=== PATIENT | male | born 1960 | race Caucasian/White ===

== ENCOUNTER 2024-06-28 18:27 | Inpatient (IN) | payer BC, SELFPAY ==
[2024-06-28 18:40] VITALS: BP 147/79
--- NOTE | 2024-06-28 19:24 | PTCARENOTE ---
patient arrived from [facility], placed on monitor, SB, VSS. patient has right R band on with 3cc of air remaining, o2 sat 96%. patient has right ant. INT @ NSS. INT is in left hand. patient is oriented to room and surroundings. TT Dr. Nagel of patients
arrival to unit.report given to oncoming RN.
[2024-06-28 19:26] VITALS: BP 144/84
[2024-06-28 19:30] VITALS: BP 140/82
--- NOTE | 2024-06-28 19:41 | HPS.HSE ---
Family Physician
-
Family Physician: Keegan Khan
Chief Complaint
-
chest pain
History of Present Illness
64-year-old male past medical history of left bundle branch block, hypercholesteremia, prediabetes, glaucoma, obesity, lumbar spine disease presenting as a transfer from [facility] for PCI.
He presented to [facility] 2 days ago for chest pain radiating into his jaw and left arm. Initially thought he was having acid reflux pain got worse which prompted him to go to the hospital.
At [facility] he was started on aspirin, heparin drip and lisinopril. Crestor dosage was increased. He underwent cardiac catheterization today which showed obstruction of the LAD following PCI. He was transferred here for subsequent LAD
PCI.
He denies smoking. Denies alcohol.
He has family history of cardiac arrest in his brother and father. His brother had diabetes.
Medical History
Past Medical History
Past Medical History: Reports Other (left bundle branch block, hypercholesteremia, prediabetes, glaucoma, obesity, lumbar spine disease)
Past Surgical History: Reports Other (Hernia repair, colonoscopy, wisdom teeth extraction, cholecystectomy, history of left hip replacement, right hip replacement,)
Social History
Tobacco: Non-smoker
Alcohol: None
Drug: None
Family History
Family History: Other (He has family history of cardiac arrest in his brother and father. His brother had diabetes.)
Allergies / Home Medications
Allergies reflects when Allergies were last updated in [employer].
Home Medications with original date entered in [employer]
Allergy/Medication List:
Not available.
Review of Systems
-
History Source: Patient
A 12 point ROS was completed and negative except as noted: Yes
Constitutional: Reports No Symptoms
EENT: Reports No Symptoms
Respiratory: Reports No Symptoms
Cardiac: Reports No Symptoms
Abdomen/GI: Reports No Symptoms
: Reports No Symptoms
Musculoskeletal: Reports No Symptoms
Skin: Reports No Symptoms
Neurological: Reports No Symptoms
Endocrine: Reports No Symptoms
Hematologic/Lymphatic: Reports No Symptoms
Psych: Reports No Symptoms
Physical Exam
Vital Signs
Vital Signs
Temp Resp Pulse Ox
98.2 F 18 95
06/28/24 18:41 06/28/24 18:41 06/28/24 18:41
Physical Exam
General: Well Developed, Well Nourished and No Apparent Distress
HEENT: NormoCephalic, Moist mucous membranes and Atraumatic
Respiratory: Clear
Cardiac: S1/S2 and Regular Rhythm; No Murmur or Rub
GI: Soft, Non Tender, Non Distended and Normal Bowel Sounds; No Organomegaly
Rectal: Deferred by Provider
Musculoskeletal: No Clubbing, No Cyanosis and No Edema
Skin: No Rash
Neuro: Nonfocal/grossly intact
Data Reviewed
-
Lab Data: Labs Reviewed by me
Old Records: Reviewed
Impression/Plan
-
IMPRESSION:
PLAN:
# NSTEMI
-Echocardiogram at [facility] showed EF of 35 to 40%, abnormal LV diastolic function
-Continue aspirin
-Continue heparin drip
-N.p.o. postmidnight for catheterization potentially tomorrow
-Cardiology consulted
-Continue lisinopril
-Continue Crestor
History of left bundle branch block
Hypercholesterolemia
-Continue statin
Prediabetes
Glaucoma
-Continue eyedrops
Obesity
Lumbar spine disease
Full code
DVT prophylaxis�heparin
N.p.o. past midnight
[2024-06-28 19:45] VITALS: BMI 36.7
[2024-06-28 20:00] VITALS: BP 139/80
[2024-06-28 20:45] LABS: Hematocrit 42.8 % (39.0-52.0); Hemoglobin 14.5 g/dL (13.0-18.0); Mean Corp Hgb Conc. 33.9 g/dL (33.0-37.0); Mean Corpuscular Hgb 29.5 pg (27.0-31.0); Mean Corpuscular Volume 87.2 fL (80.0-94.0); Platelet Count 204 10^3/uL (130-400); Red Blood Cell Count 4.91 10^6/uL (4.70-6.10); Red Cell Dist. Width 13.3 % (11.5-14.5); White Blood Cell Count 7.4 10^3/uL (4.8-10.8)
[2024-06-28] MEDS: HEPARIN 25000 UNITS/250 ML IV (20:50)
[2024-06-28 20:55] LABS: APTT 25.2 Sec (23.4-35.0)
[2024-06-28] MEDS: ALPHAGAN P 0.1% EYE DROPS OPHTH (21:42)
[2024-06-28 22:27] LABS: Glucose - Point of Care 77 mg/dl (70-99)
[2024-06-28 22:28] VITALS: BP 153/93
--- NOTE | 2024-06-28 23:40 | PTCARENOTE ---
Rec'd pt at change of shift. Pt transferred from [facility] and admission complete, then pt oriented to unit. Pt AAO*3, VSS, and in NSR on TELE monitor. Heparin gtt started as ordered. Pt denies any pain or discomfort. Pt with right radial cath site
dressing CDI. Pt agreed to RUE restriction. Pt resting with call tello in reach. Plan of care ongoing. See flowchart, worklist, and MAR for full assessment and pt care.
[2024-06-29] VITALS (16 sets, daily range): BP systolic 105–154; BP diastolic 74–94; BMI 36.4
[2024-06-29 04:09] LABS: % Basophils 0.4 % (0-2); % Eosinophils 4.8 % (0-6); % Immature Granulocytes 0.1 % (0-0.5); % Monocytes 10.3 % (1.7-9.3); % Neutrophils 58.4 % (42.2-75.2); Absolute Eosinophils 0.3 10^3/uL (0-0.7); Absolute Lymphocytes 1.7 10^3/uL (1.2-3.4); Absolute Monocytes 0.7 10^3/uL (0.1-0.6); Absolute Neutrophils 3.9 10^3/uL (1.4-6.5); Hematocrit 44.8 % (39.0-52.0); Hemoglobin 14.9 g/dL (13.0-18.0); Mean Corp Hgb Conc. 33.3 g/dL (33.0-37.0); Mean Corpuscular Hgb 29.1 pg (27.0-31.0); Mean Corpuscular Volume 87.5 fL (80.0-94.0); Mean Platelet Volume 10.4 fL (7.4-10.4); Nucleated Red Blood Cells % 0 % (-); Platelet Count 211 10^3/uL (130-400); Red Blood Cell Count 5.12 10^6/uL (4.70-6.10); Red Cell Dist. Width 13.4 % (11.5-14.5); White Blood Cell Count 6.7 10^3/uL (4.8-10.8)
[2024-06-29 04:35] LABS: ALT (SGPT) 69 U/L (0-50); AST (SGOT) 51 U/L (17-59); Alkaline Phosphatase 47 U/L (38-126); Blood Urea Nitrogen 17 mg/dl (9-20); Calcium 9.1 mg/dl (8.4-10.2); Carbon Dioxide 23 mmol/L (22-30); Chloride 106 mmol/L (98-107); Estimated Creatinine Clearance 116 ml/min; Glucose 95 mg/dl (70-99); Potassium 4.2 mmol/L (3.5-5.1); Sodium 139 mmol/L (135-145); Total Bilirubin 1.8 mg/dl (0.2-1.3); Total Protein 6.2 g/dl (6.3-8.2); eGFR > 60.00
[2024-06-29 04:57] LABS: APTT 61.4 Sec (23.4-35.0)
--- NOTE | 2024-06-29 06:42 | W.PN.HOSP.TC ---
Today's Communication/Plan
-
Review [facility] records, need to be scanned in the system
Assessment / Plan
Assessment / Plan
Physical Exam
General: Well Developed, Well Nourished and No Apparent Distress
HEENT: NormoCephalic, Moist mucous membranes and Atraumatic
Respiratory: Clear
Cardiac: S1/S2 and Regular Rhythm; No Murmur or Rub
GI: Soft, Non Tender, Non Distended and Normal Bowel Sounds; No Organomegaly
Rectal: Deferred by Provider
Musculoskeletal: No Clubbing, No Cyanosis and No Edema
Skin: No Rash
Neuro: Nonfocal/grossly intact
# NSTEMI
No chest pain
No sob
-Echocardiogram at [place] showed EF of 35 to 40%, abnormal LV diastolic function
-Continue aspirin
-Continue heparin drip, monitor PTT
-N.p.o. post-midnight for catheterization potentially tomorrow
-Cardiology consulted
-Continue lisinopril
-Continue Crestor
#History of left bundle branch block
#Hypercholesterolemia
-Continue statin
#Prediabetes
#Glaucoma
-Continue eyedrops
#Obesity
#Lumbar spine disease
Full code
DVT prophylaxis�heparin
N.p.o. past midnight
Total time spent to see the patient, examine the patient, review data and lab results, discuss treatment plan with patient and nursing staff around 55 minutes
Anticipated Discharge: 24 - 48 hours
Subjective/Interval History
-
Date of Service: June 29, 2024
No chest pain
No sob
Objective Data
-
Labs:
Laboratory Results
06/28/24 06/29/24 06/29/24
20:36 03:16 12:00
WBC 7.4 6.7
Hgb 14.5 14.9
Hct 42.8 44.8
Plt Count 204 211
APTT 25.2 61.4 H Pending
Sodium 139
Potassium 4.2
Chloride 106
Carbon Dioxide 23
BUN 17
Creatinine 0.8
Glucose 95
Calcium 9.1
Total Bilirubin 1.8 H
AST 51
ALT 69 H
Alkaline Phosphatase 47
Vital Signs:
Vital Signs
Temp Pulse Resp BP Pulse Ox
97.9 F 73 16 154/94 98
06/29/24 03:05 06/29/24 06:00 06/29/24 03:05 06/29/24 03:07 06/29/24 03:05
I&O
06/27/24 06/28/24 06/29/24
06:59 06:59 06:59
Intake Total 480 / 480
Balance 480 / 480
--- NOTE | 2024-06-29 08:31 | CON.CAR ---
Addendum entered and electronically signed by Kemal Simental MD 06/29/24 12:11:
I saw and examined the patient.
The [facility]'s note was reviewed and I agree with the note.
Comment:
GEN: No distress, awake, Ox3
HEENT: supple, anicteric, mmm
LUNGS: CTA, no wheezes/rales
CV: Reg, S1/S2, 1/6 syst LSB, no gallop
ABD: soft, BS+, NT/ND
EXT: No edema
NEURO: Gross non-focal
SKIN: No rash
Plan:
Cath results from [facility] reviewed after non-STEMI. Plan for today is for LAD intervention.
Continue aspirin, heparin, metoprolol, and Crestor.
Likely will need to add Plavix today postintervention we will discuss with interventional cardiology.
Check hemoglobin A1c.
Original Note:
Consultation
Consultation Request
Date/Time Consultation Requested: 06/28/24 at 1944
Date/Time Consultation Performed: 06/29/24 at 0732
Requesting Provider: Dr. Haider
Performing Provider: Dr. Simental
Reason for Consultation: Chest pain, LAD disease
Medical History
-
History of Present Illness:
Patient went to [facility] ER on 06/26/2024 with chest pain and ruled in for an NSTEMI and was found to have LAD disease on cardiac cath at [facility] on 06/28/2024 and was transferred to last night for planned repeat cardiac cath and LAD intervention on
06/29/2024, cardiology has been consulted. Patient does not regularly follow-up with cardiology, but had seen [facility] prior to a planned colonoscopy about 5 years ago. In the interim he has had no issues, but continues to see his PCP every 6 months for
history of hyperglycemia and hyperlipidemia. The patient reports that his blood pressure has been trending up as an outpatient, but he and his PCP were working on weight loss measures before starting a medication. Most recently patient noted that
his blood pressure was often 150/80 at home. This past Friday while at home he started with SSCP with radiation to his jaw and left arm. The symptoms persisted beyond an hour and patient called 911. In the ambulance he was given aspirin and NTG
SL without relief of symptoms. At [facility] he ruled in for an NSTEMI, troponin peak at 291 using their assay. Patient was given Plavix in [facility] ER on 06/26/2024, was started on aspirin and placed on heparin drip. He had echo that showed multiple WMA and
an EF down to 35 to 40%. He had cardiac cath at [facility] on 06/28/2024 that showed LAD disease and he is now transferred to for planned LAD intervention. He denies any CP overnight and remains on heparin gtt.
PMH:
Hyperlipidemia
Hyperglycemia
Past Medical History
Past Medical History: Other (in HPI)
Past Surgical History: Cholecystectomy, Orthopedic and Other (hernia repair)
Social History
Tobacco: Non-Smoker
Alcohol: None
Drug: None
Employment: Employed
Family History
Family History: CAD, Cancer, Diabetes and Hypertension
Allergies / Home Medications
Allergy/AdvReac Type Severity Reaction Status Date / Time
adhesive tape AdvReac Mild Itching Verified 06/28/24 20:23
codeine AdvReac Mild Nausea / Verified 06/28/24 20:14
Vomiting
�Medication �Instructions �Recorded �Confirmed �Type
brimonidine 0.1 % eye drops 1 drp RIGHT EYE 2XD 06/28/24 06/28/24 History
latanoprost 0.005 % eye drops 1 drp BOTH EYES 1XD 06/28/24 06/28/24 History
rosuvastatin 5 mg tablet (Crestor) 1 mg PO 1XD 06/28/24 06/28/24 History
Review of Systems
-
History Source: Patient
All other systems: Negative unless noted
Physical Exam
Vital Signs
Temp Pulse Resp BP Pulse Ox
98.6 F 73 18 154/94 98
06/29/24 07:30 06/29/24 06:00 06/29/24 07:30 06/29/24 03:07 06/29/24 07:30
GEN: NAD. AAOx3
HEENT: EOMI, MMM
LUNGS: RA. CTA B/L without wheeze
CV: SR on tele. Reg, S1/S2, no murmur
ABD: soft, BS+, NT, ND
EXT: No clubbing, cyanosis, lesions or edema B/L
NEURO: Gross non-focal
SKIN: Warm, dry and pink. No rash
Lab Results
06/29/24 03:16
06/29/24 03:16
Impression / Plan
-
PCP: Dr. Keegan Khan
Cardiology: [facility]
Impression:
Admitted to [facility] with chest pain 06/26/23
Transferred to for LAD PCI 06/28/24
NSTEMI, Troponin levels from [facility]
CAD with LAD lesion by cath at [facility] 06/28/24
Presumed ischemic cardiomyopathy EF 35 to 40% by echo 06/28/2024
LBBB of unknown chronicity
HTN
Hyperlipidemia
Hyperglycemia
Mild to moderate MR
Echo 06/28/2024: [facility] study, EF 35 to 40%, multiple segmental WMA, severe concentric LVH, mild to moderate TR, mild to moderate MR
Plan:
-Patient went to [facility] ER on 06/26/2024 with chest pain and ruled in for an NSTEMI and was found to have LAD disease on cardiac cath at [facility] on 06/28/2024 and was transferred to last night for planned repeat cardiac cath and LAD intervention on
06/29/2024, cardiology has been consulted. Patient does not regularly follow-up with cardiology, but had seen [facility] prior to a planned colonoscopy about 5 years ago. In the interim he has had no issues, but continues to see his PCP every 6 months for
history of hyperglycemia and hyperlipidemia. The patient reports that his blood pressure has been trending up as an outpatient, but he and his PCP were working on weight loss measures before starting a medication. Most recently patient noted that
his blood pressure was often 150/80 at home. This past Friday while at home he started with SSCP with radiation to his jaw and left arm. The symptoms persisted beyond an hour and patient called 911. In the ambulance he was given aspirin and NTG
SL without relief of symptoms. At [facility] he ruled in for an NSTEMI, troponin peak at 291 using their assay. Patient was given Plavix in [facility] ER on 06/26/2024, was started on aspirin and placed on heparin drip. He had echo that showed multiple WMA and
an EF down to 35 to 40%. He had cardiac cath at [facility] on 06/28/2024 that showed LAD disease and he is now transferred to for planned LAD intervention. He denies any CP overnight and remains on heparin gtt.
-ECG reviewed by me show LBBB of unknown chronicity and sinus bradycardia.
-LDL at [facility] was 93. Outpatient dose of Crestor 5 mg daily has been increased to 40 mg daily
-Patient was not taking any BP meds prior to admission. He was started on lisinopril 5 mg daily at [facility] prior to transfer and this has been continued
-Will start Toprol XL 25 mg daily now, ordered by me
-Patient has a history of hyperglycemia according to transfer records, although blood glucose this morning is only 95. Will check HgbA1c.
-New to aspirin this admission.
-Patient was given Plavix in [facility] ER on 06/26/2024, but then no additional doses were given, perhaps because they thought he would be MV CAD. Presumably if he has successful LAD intervention today then he will be started on DAPT. He continues to
work and has commercial insurance so that if Brilinta is started he should be able to use the [employer] co-pay card.
-EF 35 to 40% by echo at [facility] on 06/28/2024. No evidence of acute HF. Lisinopril and Toprol XL started as noted above. Will also start Farxiga 10 mg daily and ask CM to check on cost, but again he has commercial insurance and should be able to use
co-pay card.
[2024-06-29] MEDS: ALPHAGAN P 0.1% EYE DROPS 1 DROP OPHTH ×2 (08:33→17:11)
[2024-06-29] MEDS: LOW STRENGTH ASPIRIN 81 MG PO (08:35)
[2024-06-29] MEDS: ZESTRIL 5 MG PO (08:35)
[2024-06-29] MEDS: MAGNESIUM OXIDE 500 MG PO (08:57)
[2024-06-29] MEDS: TOPROL XL 25 MG PO (08:57)
--- NOTE | 2024-06-29 09:35 | PTCARENOTE ---
received patient this am awake, remains NPO for cath today. IV heparin @ 1600units/hr without difficulties. monitor shows SB with BBC and a first degree. patient c/o legs 'jumping', requested a dose of magnesium, Syl ESTEVEZ aware and ordered a
dose.
[2024-06-29 10:14] LABS: Magnesium 1.9 mg/dl (1.6-2.3)
[2024-06-29 11:32] LABS: Glycohemoglobin (HgbA1c) 6.4 % (4.0-5.6)
[2024-06-29] MEDS: HEPARIN 25000 UNITS/250 ML IV (12:18)
--- NOTE | 2024-06-29 15:30 | CM ---
spoke with pt in room, he is prev indep, lives wirh his in a 2 story home with no step stoenter. he denies any dc planning needs or dme's. plan is for dc to home when medically stable
[2024-06-29 16:05] LABS: ACT-LR - POC 227 Seconds (116-155)
--- NOTE | 2024-06-29 16:26 | ITS.CL.ANGIO ---
[facility] - Angioplasty
Angioplasty
Procedure Report:
LEFT HEART CATHETERIZATION
Date of Procedure: June 29, 2024
Procedures performed:
1: Percutaneous coronary invention left anterior descending artery with placement of a 3.0 x 26 mm [place] drug-eluting stent
Primary Care Physician: Dr. Keegan Khan
Primary Slash Trimmer: Dr. Riki Palma
INDICATION: The patient is a 64-year-old man with a known chronic LBBB who presents with symptoms concerning for non-ST elevation. He will underwent cardiac catheterization at [facility] yesterday which was suspicious for a possible acute
coronary syndrome and an LAD diagonal territory. In light of difficulty with catheter engagement of the left main from a radial approach and tortuosity within the mid LAD he was transferred to [facility] for complex PCI. The patient was
pretreated with aspirin and Plavix. Cardiac enzymes at [facility] did rise and fall suspicious for ACS however his CPK did not elevate above normal parameters.
ACCESS: The patient was prepped and draped in usual sterile fashion. A 6 [place] sheath was placed in the right common femoral artery using the Seldinger over the wire technique. Ultrasound was used with a micropuncture kit for access.
HEMODYNAMIC FINDINGS (mmHg):
LV(s/d,EDP): 138/11, 20
Ao(s/d,m): 138/88, 107
ANGIOGRAPHIC FINDINGS:
Single-plane Left Ventriculography in [place] [facility]
Coronary Angiography (from yesterday at [facility]):
Dominance: Right
Left Main: The left main was tremendously difficult to engage from the right radial access. Attempts with a 6 [place]ran JL 3.5, JL 4, and JL 5 were not readily successful. I briefly attempted with a 5 [place] multipurpose guide as well as the 6 Andorran
JR4 diagnostic guide. Ultimately I was able to precariously engage in noncoaxial fashion with a 6 [place] XB 3.0 guiding catheter. In the future, a XB 3.5 or 4.0 may be adequate. Due to my difficulty I performed a aortic root angiogram in the [place]
projection and attempt to better define the anatomy. The left main is widely patent and relatively large caliber.
Left Anterior Descending: The left anterior descending artery is a relatively small to medium caliber vessel that has a somewhat tortuous course in the midportion and gives rise to a small and medium caliber first and second diagonal branch. The
mid tortuous vessel has an area of smooth 70 to 80% disease. The ostium of the second diagonal branch is not well visualized due to vascular overlapping tortuosity but may have significant disease. The distal LAD has normal ADAM-3 flow as to both
diagonal branches. The second diagonal branch appears to have a distal vascular cutoff and may in fact be the culprit vessel and his symptoms with low-level troponin elevation. There is no clear dye staining to be totally certain.
Ramus intermedius: There is a huge ramus intermedius branch present that bifurcates into 2 large vessels distally. These vessels are angiographically normal with normal flow.
Left Circumflex: The left circumflex is a medium caliber nondominant system that gives rise to 1 major obtuse marginal branch that is widely patent with normal flow.
Right Coronary: The right coronary artery is a medium to large caliber dominant vessel that gives rise to a large posterior descending artery and posterior left ventricular branch system. There is moderate diffuse calcification within the AV groove
with mild to moderate nonobstructive luminal irregularities with at worst a smooth 30% stenosis at the acute margin. All vessels have normal distal flow.
Percutaneous Coronary Intervention (PCI): The patient was pretreated with aspirin and Plavix. Given the difficulty accessing left main from the radial approach, I elected to use groin access. Without much difficulty, a 6 [place]ran XB 3.5 guiding
catheter was used to engage the somewhat anomalous takeoff of the left main which is slightly superior on a hypoplastic left coronary cusp. The patient was given unfractionated heparin. A Hi-Torque floppy wire was easily advanced across the LAD
into the distal vessel. Attempts to protect the medium caliber diagonal branch with a BMW wire were unsuccessful due to inability to wire. Predilation of the LAD was performed with a 2.5 x 15 mm balloon. Next a 3.0 x 26 mm [place] drug-eluting stent
was deployed at 14 otto. The stent was postdilated with a 3.0 mm diameter noncompliant balloon at 18 otto. This was done in a distal to proximal fashion taking care to stay within the stented margins.
FINAL RESULT: 0% in-stent residual stenosis with an outstanding angiographic result
Fluoroscopy Time (min): 11.4
Radiation Dose (mGy): 678
DAP (Gy.cm2): 46
Closure device: 6 [place] Angio-Seal to right common femoral artery. No acute complication.
Complications: None.
ASSESSMENT:
1: Successful PCI of the LAD with placement of a drug-eluting stent without acute complication. Of note there is significant ostial disease in both jailed diagonal branches however they were left with ADAM-3 flow.
CONCLUSIONS and RECOMMENDATIONS:
1: Routine post PCI and post small possible ACS non-STEMI medical therapy and monitoring. The patient needs dual antiplatelet therapy with aspirin and clopidogrel uninterrupted for a year. Medical therapy for LV systolic dysfunction. I suspect
that some of his LV dysfunction was not related to an acute coronary syndrome but may have predated this presentation given his longstanding left bundle branch block.
2: Close clinical follow-up as scheduled.
Derrek Adan M.D.
Copy to: Dr. Keegan Khan
--- NOTE | 2024-06-29 16:49 | PTCARENOTE ---
patient returned from [employer] with right fem. artery angiosealed, dsg. D/I, distal pulse palpable. instructed patient on post cath , verbalizes understanding. patient is lethargic but easily aroused and answers questions appropriately. IV NSS @
168cc/hr. monitor shows SB with a wide LBBC, HR 44, [employer] RN's said he did that the whole case.
[2024-06-29] MEDS: CRESTOR 40 MG PO (17:10)
[2024-06-29] MEDS: TYLENOL 650 MG PO (17:10)
[2024-06-29] MEDS: ALPHAGAN P 0.1% EYE DROPS OPHTH (17:35)
--- NOTE | 2024-06-29 17:56 | PTCARENOTE ---
patient c/o left shoulder pain, pillow applied under right ar as per patients request and Tylenol po given as ordered.
--- NOTE | 2024-06-29 22:00 | PTCARENOTE ---
Recc'd pt at change of shift. Pt AAO*3, VSS, and in NSR with a BBB on TELE monitor. Pt denies any pain or discomfort. Pt with right radial and right femoral dressings CDI. Pt agreeable and aware of activity restrictions. Pt resting with call
tello in reach. Plan of care ongoing.
[2024-06-29] MEDS: XALATAN OPHTHALMIC SOLUTION 1 DROP OPHTH (22:17)
[2024-06-30 03:14] VITALS: BP 150/92
[2024-06-30 03:33] VITALS: BP 150/92
[2024-06-30 03:35] VITALS: BP 162/89
[2024-06-30 03:59] VITALS: BMI 36.3
[2024-06-30 04:13] LABS: Hematocrit 42.6 % (39.0-52.0); Hemoglobin 14.3 g/dL (13.0-18.0); Mean Corp Hgb Conc. 33.6 g/dL (33.0-37.0); Mean Corpuscular Hgb 29.2 pg (27.0-31.0); Mean Corpuscular Volume 87.1 fL (80.0-94.0); Platelet Count 198 10^3/uL (130-400); Red Blood Cell Count 4.89 10^6/uL (4.70-6.10); Red Cell Dist. Width 13.6 % (11.5-14.5); White Blood Cell Count 5.7 10^3/uL (4.8-10.8)
[2024-06-30 04:44] LABS: Blood Urea Nitrogen 18 mg/dl (9-20); Calcium 9.4 mg/dl (8.4-10.2); Carbon Dioxide 20 mmol/L (22-30); Chloride 105 mmol/L (98-107); Estimated Creatinine Clearance 116 ml/min; Glucose 97 mg/dl (70-99); Potassium 4.1 mmol/L (3.5-5.1); Sodium 138 mmol/L (135-145); eGFR > 60.00
--- NOTE | 2024-06-30 06:35 | W.PN.HOSP.TC ---
Today's Communication/Plan
-
discharge
Assessment / Plan
Assessment / Plan
Physical Exam
General: Well Developed, Well Nourished and No Apparent Distress
HEENT: NormoCephalic, Moist mucous membranes and Atraumatic
Respiratory: Clear
Cardiac: S1/S2 and Regular Rhythm; No Murmur or Rub
GI: Soft, Non Tender, Non Distended and Normal Bowel Sounds; No Organomegaly
Rectal: Deferred by Provider
Musculoskeletal: No Clubbing, No Cyanosis and No Edema
Skin: No Rash
Neuro: Nonfocal/grossly intact
# NSTEMI
s/p percutaneous coronary invention left anterior descending artery with placement of a drug-eluting stent by Dr Adan on 06/29.
No chest pain
No sob
-Echocardiogram at [place] showed EF of 35 to 40%, abnormal LV diastolic function
-Continue aspirin, Plavix.
-Continue lisinopril, Farxiga.
-Echo on 06/28 showed LVEF 35 to 40%, mild pulmonary valve regurgitation, mild to moderate tricuspid regurgitation, trace aortic regurgitation, moderate mitral regurgitation, estimated right ventricular systolic pressure 41.6 mmHg
-Continue Crestor
#History of left bundle branch block
#Hypercholesterolemia
-Continue statin
#Prediabetes
#Glaucoma
-Continue eyedrops
#Obesity
#Lumbar spine disease
Full code
DVT prophylaxis�heparin
Total discharge time spent to see the patient, examine the patient, review data and lab results, discuss discharge plan with patient and nursing staff around 65 minutes
Anticipated Discharge: Today
Subjective/Interval History
-
Date of Service: June 30, 2024
No chest pain
No sob
Objective Data
-
Labs:
Laboratory Results
06/30/24
03:54
WBC 5.7
Hgb 14.3
Hct 42.6
Plt Count 198
Sodium 138
Potassium 4.1
Chloride 105
Carbon Dioxide 20 L
BUN 18
Creatinine 0.8
Glucose 97
Calcium 9.4
Vital Signs:
Vital Signs
Temp Pulse Resp BP Pulse Ox
98 F 51 16 162/89 96
06/30/24 03:33 06/30/24 06:00 06/30/24 03:33 06/30/24 03:35 06/30/24 03:33
I&O
06/28/24 06/29/24 06/30/24
06:59 06:59 06:59
Intake Total 480 / 480 1104 / 1104
Balance 480 / 480 1104 / 1104
[2024-06-30 08:22] VITALS: BP 128/87
[2024-06-30] MEDS: PLAVIX 75 MG PO (08:22)
[2024-06-30] MEDS: ZESTRIL 5 MG PO (08:22)
[2024-06-30] MEDS: FARXIGA 10 MG PO (08:22)
[2024-06-30] MEDS: LOW STRENGTH ASPIRIN 81 MG PO (08:22)
[2024-06-30] MEDS: ALPHAGAN P 0.1% EYE DROPS 1 DROP OPHTH (08:23)
[2024-06-30] MEDS: TOPROL XL 25 MG PO (08:23)
[2024-06-30] MEDS: MAGNESIUM OXIDE 500 MG PO (08:48)
--- NOTE | 2024-06-30 10:24 | W.PN.CARDCBS ---
Addendum entered and electronically signed by Syl Rosen PA-C 06/30/24 10:56:
e-scribed Plavix, lisinopril, Crestor, Coreg, Farxiga
Addendum entered and electronically signed by Essie Jaramillo MD 06/30/24 10:46:
I saw and examined the patient.
The Business Improvement Manager's note was reviewed and I agree with the note.
Comment:
Did well status post coronary intervention. No complaints overnight. Walking. Right groin site stable with bandage in place. Patient had LAD PCI 06/30/2024 due to aspirin and Plavix. I discussed with him that these medications cannot be
interrupted. He understands. Aggressive risk factor modification with intensification of statin. Good blood pressure control. Given cardiomyopathy guideline directed medical therapy which will be further titrated as an outpatient. Consider
switching to Entresto if affordable as an outpatient. Farxiga also started. Continue IRISH inhibitor and beta-leeann. Switched him to carvedilol today.
I reinforced the importance of cardiac rehab.
At the 40-day tosha left ventricular ejection fraction should be reassessed by echocardiogram to determine patient's future risk of arrhythmia. Stable for discharge. Appointments with [facility] cardiology set up.
Original Note:
Today's Communication / Plan
-
D/C to home
Change Toprol XL to Coreg
53 min in coordination of care and c d/c meds
Impression / Plan
-
PCP: Dr. Keegan Khan
Cardiology: [facility]
Impression:
Admitted to [facility] with chest pain 06/26/23
Transferred to for LAD PCI 06/28/24
NSTEMI, Troponin levels from [facility]
CAD with LAD lesion by cath at [facility] 06/28/24
s/p 3.0 mm Aric FENG to LAD
Presumed ischemic cardiomyopathy EF 35 to 40% by echo 06/28/2024
LBBB of unknown chronicity
HTN
Hyperlipidemia
Hyperglycemia, pre-diabetes
Mild to moderate MR
Echo 06/28/2024: [facility] study, EF 35 to 40%, multiple segmental WMA, severe concentric LVH, mild to moderate TR, mild to moderate MR
Plan:
-Patient had successful LAD PCI 06/30/24. New to aspirin and Plavix.
-Patient with known LBBB of unknown chronicity.
-Ruled in as a NSTEMI.
-Cardiac rehab consulted
-LDL at [facility] was 93. Outpatient dose of Crestor 5 mg daily has been increased to 40 mg daily
-EF was 35-40% by echo at [facility], will manage as an ischemic CM.
-Toprol XL started 06/29/24 and was well tolerated, but will change to Coreg 6.25 mg BID on 06/30/24 due to ICM
-Started on lisinopril 5 mg daily at [facility] prior to transfer and this has been continued
-HgbA1c was 6.4% and c/w pre-diabetes.
-New to Farxiga 10 mg daily. He has commercial insurance and should be able to use co-pay card.
-Patient will need a 40 day echo to recheck EF and if EF less than 35% then might need to consider ICD. Will also need ongoing medication titration for CM. Could transition lisinopril to Entresto as an outpatient.
HPI: Patient went to [facility] ER on 06/26/2024 with chest pain and ruled in for an NSTEMI and was found to have LAD disease on cardiac cath at [facility] on 06/28/2024 and was transferred to last night for planned repeat cardiac cath and LAD intervention on
06/29/2024, cardiology has been consulted. Patient does not regularly follow-up with cardiology, but had seen [facility] prior to a planned colonoscopy about 5 years ago. In the interim he has had no issues, but continues to see his PCP every 6 months for
history of hyperglycemia and hyperlipidemia. The patient reports that his blood pressure has been trending up as an outpatient, but he and his PCP were working on weight loss measures before starting a medication. Most recently patient noted that
his blood pressure was often 150/80 at home. This past Friday while at home he started with SSCP with radiation to his jaw and left arm. The symptoms persisted beyond an hour and patient called 911. In the ambulance he was given aspirin and NTG
SL without relief of symptoms. At [facility] he ruled in for an NSTEMI, troponin peak at 291 using their assay. Patient was given Plavix in [facility] ER on 06/26/2024, was started on aspirin and placed on heparin drip. He had echo that showed multiple WMA and
an EF down to 35 to 40%. He had cardiac cath at [facility] on 06/28/2024 that showed LAD disease and he is now transferred to for planned LAD intervention. He denies any CP overnight and remains on heparin gtt.
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
Subjective
Date of Service: June 30, 2024
He feels well, wants to go home, no chest pain
Objective
Labs:
06/30/24 03:54
06/30/24 03:54
Labs
Hgb 14.3 g/dL (13.0-18.0) 06/30/24 03:54
Hct 42.6 % (39.0-52.0) 06/30/24 03:54
Plt Count 198 10^3/uL (130-400) 06/30/24 03:54
APTT Cancelled 06/29/24 12:00
Sodium 138 mmol/L (135-145) 06/30/24 03:54
Potassium 4.1 mmol/L (3.5-5.1) 06/30/24 03:54
BUN 18 mg/dl (9-20) 06/30/24 03:54
Creatinine 0.8 mg/dL (0.7-1.3) 06/30/24 03:54
Glucose 97 mg/dl (70-99) 06/30/24 03:54
Vital Signs and I&O:
Vital Signs
Temp Pulse Resp BP Pulse Ox
98.2 F 85 20 128/87 97
06/30/24 08:26 06/30/24 08:22 06/30/24 08:26 06/30/24 08:22 06/30/24 08:26
Vital Signs
Temp Pulse Resp BP Pulse Ox
98.2 F 85 20 128/87 97
06/30/24 08:26 06/30/24 08:22 06/30/24 08:26 06/30/24 08:22 06/30/24 08:26
Intake & Output
06/28/24 06/29/24 06/30/24 07/01/24
06:59 06:59 06:59 06:59
Intake Total 480 / 480 1104 / 1104
Balance 480 / 480 1104 / 1104
Physical Exam
Physical Exam
GEN: NAD. AAOx3
HEENT: EOMI, MMM
LUNGS: RA. No audible wheeze
CV: SR on tele.
ABD: ND
EXT: No edema B/L
NEURO: Gross non-focal
SKIN: No rash
Scores
ADAM for NSTEMI
Age >/= 65: No
>/=3 CAD risk factors-HTN,High Chol,Fam hx CAD,DM,Smoker: Yes
Known CAD (stenosis >/=50%): Yes
ASA use in past 7 days: Yes
Severe angina (>/= 2 episodes in 24 hrs): No
EKG ST Changes >/= 0.5mm: No
Positive cardiac marker: Yes
Score: 4
Risk at 14 days-mortality, new/recurrent NE, severe ischemia: Intermediate Risk- 20% Risk at 14 days- all cause mortality, new or recurrent NE, or severe recurrent ischemia requiring urgent revascularization
--- NOTE | 2024-06-30 11:50 | W.DCSUMMARY ---
Discharge Summary
Discharge Data
Date of Admission: 06/28/24
Date of Discharge: 06/30/24
-
Pending Results: No
Hospital Course
64 years old male who was admitted for left heart catheterization. Patient presented with chest symptoms to [facility] was diagnosed with non-ST elevation myocardial infarction. Patient underwent left heart catheterization at [facility] and was transferred to [facility] to have another catheterization on June 30 with successful drug-eluting stent placement of LAD. No complications reported. Most recent echocardiogram showed reduced ejection fraction. Patient
was started on new medications and was counseled about instructions. Patient remained hemodynamically stable and was discharged home in a stable condition.
Discharge Plan
-
Patient Disposition: Home (Routine Discharge)
Discharge Diagnosis/Procedures: NSTEMI, Angioplasty with stent to LAD
Condition: Good
Diet: Low Cholesterol
Activity: Other activity
Driving Restrictions: No driving for 24 hours
Bathing Restrictions: OK to Shower
Other Services: Cardiac Rehab
Stand Alone Forms: DC Instructions- Cath/EP Lab
Referrals:
[facility] [Provider Group] - 07/02/24 11:00 am (Groin check appointment)
Keegan Khan MD [Family Provider] -
Additional Discharge Medication Instructions: -Start taking aspirin 81 mg daily and Plavix (clopidogrel) 75 mg daily. Do not interrupt either medication for any reason unless approved by your orthopedic physical therapist.
-Start taking lisinopril 5 mg daily. Check non-fasting blood work in 1-2 weeks.
-Start taking Coreg (carvedilol) 6.25 mg twice a day.
-Start taking Farxiga 10 mg daily.
-Increase your dose of Crestor (rosuvastatin) to 40 mg once a day (one 40 mg tablet or eight 5 mg tablets)
Prescriptions:
New
carvedilol 6.25 mg Tablet
6.25 mg PO BID Qty: 60 11RF
rosuvastatin 40 mg Tablet
40 mg PO QPM Qty: 30 11RF
dapagliflozin propanediol 10 mg Tablet
10 mg PO DAILY Qty: 30 11RF
clopidogrel 75 mg Tablet
75 mg PO DAILY Qty: 30 11RF
aspirin 81 mg Tablet,Chewable
81 mg PO DAILY Qty: 30 0RF
lisinopril 5 mg Tablet
5 mg PO DAILY Qty: 30 11RF
Continued
latanoprost 0.005 % Drops
1 drp BOTH EYES HS
brimonidine 0.1 % Drops
1 drp RIGHT EYE 2XD
Discontinued
rosuvastatin [Crestor] 5 mg Tablet
1 mg PO 1XD
Discharge Orders:
Discharge Patient (As Directed); Ordered 06/30/24
Ordered By: Shukri Haider
Care Plan Goals
Care Plan Goals:
Problem: Readiness for enhanced knowledge related to diagnosis and treatment plan
Goal: Understand your diagnosis and treatment plan needs, including medications if applicable.
Instructions: Know your diagnosis, underlying causes and treatment plan options, including medications if applicable. Consult with your health care team to learn about your diagnosis and treatment plan, including medications if applicable.
Discharge Date and Time
Print Language: ICELANDIC
--- NOTE | 2024-06-30 11:52 | PTCARENOTE ---
Pt AOx3, no complaints of pain or discomfort. Right groin and right wrist sites CDI. Plan for discharge later today. VSS, SR with 1st Hb on tele monitor. Call tello within reach.
--- NOTE | 2024-06-30 12:04 | CM ---
Priced Farxiga thru patient's pharmacy, [facility] [place].
Est cost of Farxiga (brand name) for x30 d is $75/mo.
I have met w/ patient and spouse at bedside to update.
Coupons for free 30 d and $0/mo have been provided and placed in DC folder.
--- NOTE | 2024-06-30 12:05 | CM ---
CM following for DC planning needs.
Pt. for DC to home today.
He offers no concerns or needs at this time.
Plan: HOME, no needs.
[2024-06-30 12:15] VITALS: BP 116/77
[2024-06-30 12:24] LABS: ACT-LR - POC > 397 Seconds (116-155)
[2024-06-30 12:24] LABS: ACT-LR - POC > 397 Seconds (116-155)
== END 2024-06-30 12:39 | disposition home or self-care (01) | DRG 322 ==
LOC: IVU 18:27
PROVIDERS: Hospitalist; Internal Medicine Interventional Cardiology; ADMITTING PHYSICIAN Internal Medicine Interventional Cardiology; ATTENDING PHYSICIAN Internal Medicine; FAMILY PHYSICIAN Family Medicine; OTHER PHYSICIAN Internal Medicine Cardiovascular Disease
PROC: B2151ZZ Fluoroscopy of Left Heart using Low Osmolar Contrast (ICD-10-PCS; 2024-06-29)
PROC: 027034Z Dilation of Coronary Artery, One Artery with Drug-eluting Intraluminal Device, Percutaneous Approach (ICD-10-PCS; 2024-06-29)
PROC: B2101ZZ Fluoroscopy of Single Coronary Artery using Low Osmolar Contrast (ICD-10-PCS; 2024-06-29)
PROC: 4A023N7 Measurement of Cardiac Sampling and Pressure, Left Heart, Percutaneous Approach (ICD-10-PCS; 2024-06-29)
DX: I21.4 Non-ST elevation (NSTEMI) myocardial infarction (principal); E78.00 Pure hypercholesterolemia, unspecified; E66.9 Obesity, unspecified; H40.9 Unspecified glaucoma; I25.5 Ischemic cardiomyopathy; Z68.36 Body mass index [BMI] 36.0-36.9, adult
CPT/HCPCS: 80048; 80053; 82962; 83036; 83735; 85025; 85027; 85347; 85730; 93005; C1725; C1760; C1769; C1874; C1887; C1894; C9600; Q9967